=== PATIENT | male | born 1995 | race Caucasian/White ===

== ENCOUNTER 2017-01-13 02:55 | Emergency (ER) | payer OTHER ==
[~2017-01-13] VITALS: Ht 175.3 cm; Wt 99.7 kg
[2017-01-13 03:00] VITALS: TEMP 36.9; Ht 175.3 cm; Wt 99.7 kg
[2017-01-13 03:31] LABS: BUN/CREATININE RATIO 11.8 (10-20); CALCIUM 8.4 mg/dl (8.5-10.1); CREATININE 1.2 mg/dl (0.60-1.40); POTASSIUM 3.4 mmol/L (3.5-5.1)
--- NOTE | 2017-01-13 03:43 | EMERGENCY ROOM VISIT NOTE ---
History Report prepared by Ofelia: Nupur Ojeda Under the Supervision of: Dr. Al Garcia M.D. First contact with patient: 02:56 Chief Complaint: ALCOHOL OVERDOSE Stated Complaint: ALCOHOL OVERDOSE History of Present Illness The patient is a 21 year old male who presents to the Emergency Room with complaints of an episode of an alcohol overdose occurring [employer]. The patient admits to drinking "a lot" of alcohol tonight. He denies any drug use or altercations. He does not have any complaints. Per EMS, the patient was found wandering around [place] [employer] knocking on a stranger's door. The patient states he was trying to get home. The history is limited secondary to intoxication. Source of History: patient, EMS History Limited By: intoxication Onset: episode Position: other (global) Quality: other (alcohol overdose) Timing: other (episode) Review of Systems ROS is limited secondary to intoxication. Past Medical & Surgical Medical Problems: (1) No significant active problems Family History No pertinent history stated. Social History Smoking Status: Never Smoker Alcohol Use: occasionally Marital Status: single Housing Status: lives with roommate Occupation Status: [employer] student Current/Historical Medications Unable to Obtain Active Prescriptions or Reported Meds Allergies Coded Allergies: No Known Allergies (Unverified , 08/01/15) Physical Exam Vital Signs Date Time Temp Pulse Resp B/P Pulse Ox O2 Delivery O2 Flow Rate FiO2 01/13/17 07:04 97 16 127/65 98 01/13/17 06:00 76 16 110/62 96 Room Air 01/13/17 05:00 75 16 108/51 95 Room Air 01/13/17 04:03 80 16 114/71 100 Room Air 01/13/17 03:08 Room Air 01/13/17 03:01 100 01/13/17 03:00 36.9 94 16 126/76 97 Room Air Physical Exam GENERAL: Patient is heavily intoxicated. Smells of alcohol. Well appearing and in no acute distress. HEAD: No evidence of Trauma. AT/NC EYES: Injected conjunctiva. Normal EOM. Pupils equal/reactive. ENT: Mucous membranes moist, no nasal congestion, . NECK: No step-offs, no adenopathy, no meningismus, trachea is midline. LUNGS: No dyspnea. Clear to auscultation and equal bilaterally. No wheeze, no rhonchi. HEART: Regular rate and rhythm. No murmurs, rubs, gallops appreciated. ABDOMEN: Soft, nontender, bowel sounds positive, no masses appreciated, no peritonitis. BACK: No midline tenderness, no CVA tenderness EXTREMITIES: Normal motion all extremities, no cyanosis, no edema. NEUROLOGIC: Slurred, intoxicated speech, knows name. No acute motor or sensory deficits, no focal weakness, cranial nerves grossly intact. SKIN: No rash, no jaundice, no diaphoresis. Medical Decision & Procedures Laboratory Results 01/13/17 03:05 Test 01/13/17 03:05 Anion Gap 12.0 mmol/L (3-11) Est Creatinine Clear Calc Drug Dose 114.3 ml/min Estimated GFR () 100.3 Estimated GFR (Non- 86.5 BUN/Creatinine Ratio 11.8 (10-20) Calcium Level 8.4 mg/dl (8.5-10.1) Ethyl Alcohol mg/dL 250.0 mg/dl (0-3) Laboratory results as reviewed by me. ED Course 0256: The patient was evaluated in room B4B. A complete history and physical exam was performed. 0421: The patient is sleeping soundly. 0646: I reassessed the patient at this time. He is feeling better. I discussed the results and treatment plan with the patient. He expressed understanding and verbalized agreement. His girlfriend is en route to the hospital to pick him up. Medical Decision Differential: Alcohol Intoxication, Drug Intoxication, Electrolyte Abnormality, Trauma, Intracranial Event, Toxicological, Excited Delirium, Serotonin Syndrome , amongst other pathologies entertained. 21 yr old intoxicated male brought in by EMS after being found knocking on door of strangers house heavily intoxicated. Patient with no evidence nor history for trauma. Protecting airway and breathing comfortably throughout ED stay. EtOH positive. Monitored and discharged when awake, alert, oriented and denies any complaints. Impression Primary Impression: Alcohol intoxication Additional Impression: Alcohol abuse Scribe Attestation The scribe's documentation has been prepared under my direction and personally reviewed by me in its entirety. I confirm that the note above accurately reflects all work, treatment, procedures, and medical decision making performed by me. Departure Information Dispostion Home / Self-Care Prescriptions Unable to Obtain Active Prescriptions or Reported Meds Referrals [facility] Patient Instructions ED Alcohol Intoxication, [facility]: [employer] Students and Alcohol Related Visits, My [facility] Health Problem Qualifiers Primary Impression: Alcohol intoxication Complication of substance-induced condition: uncomplicated Qualified Codes: F10.120 - Alcohol abuse with intoxication, uncomplicated
[2017-01-13 07:04] VITALS: BP 127/65; PULSE 97; O2SAT 98
== END 2017-01-13 07:05 | disposition home or self-care (01) ==
LOC: EDBD 02:55 → C.EDB 02:56
DX: F10.120 Alcohol abuse with intoxication, uncomplicated (principal)